=== PATIENT | male | born 1960 | race Caucasian/White ===

== ENCOUNTER 2016-06-08 09:01 | Emergency (ER) | payer BC, OTHER ==
[2016-06-08] MEDS: ASPIRIN 81 MG CHEWABLE TABLET PO ONE (09:19)
[2016-06-08] MEDS: 0.9 % SODIUM CHLORIDE 1000ML 1,000 ML IV PRN (09:19)
[2016-06-08 09:21] LABS: BASO % 0.7 % (0-6); EOS % 1.4 % (0-6); GRAN % 48.8 % (47-80); HEMATOCRIT 41.3 % (42.0-52.0); HEMOGLOBIN 14.6 gm/dl (14.0-18.0); LYMPH % 37.3 % (16-45); MEAN CELL VOLUME 103.8 fl (81-97); MEAN CORPUSCULAR HGB CONC 35.4 g/dl (32-36); MEAN PLATELET VOLUME 8.8 fl (7.4-10.4); MONO % 11.8 % (0-9); PLATELET COUNT 320 K/uL (130-400); RED BLOOD COUNT 3.98 M/uL (4.40-5.70); RED CELL DISTRIBUTION WIDTH 12.3 % (11.5-14.5); WHITE BLOOD COUNT W/O DIFF 5.5 K/uL (4.2-12.2)
[2016-06-08 09:24] LABS: MEAN CORPUSCULAR HEMOGLOBIN 36.6 pg (27-33)
[2016-06-08 09:33] LABS: ANION GAP 9.6 (7-16); BLOOD UREA NITROGEN 13 mg/dL (9-20); CARBON DIOXIDE 26.4 mmol/L (22-30); CREATININE 0.9 mg/dL (0.66-1.25); EST GLOMERULAR FILTRATION RATE > 60 ml/min; GLUCOSE,RANDOM 92 mg/dL (70-110)
--- NOTE | 2016-06-08 09:33 | Emergency Department Record ---
History of Present Illness - General Chief Complaint: Chest Pain Stated Complaint: COUGHING/CHEST DISCOMFORT Time Seen by Provider: 06/08/16 09:09 Source: Patient, RN notes reviewed Mode of Arrival: Ambulatory - History of Present Illness Initial Comments: cough and chest pain for 3 weeks and has not seen anyone medical yet. Onset/Timin -: Week(s) Onset: Awoke with symptoms Pain Location: Substernal Pain Radiation: None Severity: Mild Severity scale (1-10): 5 Quality: Heaviness Consistency: Constant Improves With: Nothing Worsens With: Nothing Treatments Prior to Arrival: None - Related Data Home Medications Medication Instructions Recorded Confirmed Last Taken Lidocaine Patch [Lidoderm] 1 ea TOP DAILY 06/08/16 06/08/16 06/08/16 Previous Rx's Medication Instructions Recorded Albuterol Sulfate [Proair Hfa] 1 - 2 puff IH .EVERY 4-6 HOURS PRN 06/08/16 #1 inhaler Doxycycline Hyclate [Doxycycline] 100 mg PO BID #20 cap 06/08/16 Prednisone [Prednisone 10Mg] 10 mg PO ASDIR #30 tab 06/08/16 Allergies Allergy/AdvReac Type Severity Reaction Status Date / Time No Known Drug Allergies Allergy Verified 06/08/16 09:08 Travel Screening - Travel/Exposure Within Last 30 Days Have you traveled within the last 30 days?: No Review of Systems Reviewed: No additional complaints except as noted below Constitutional: Reports: As per HPI. Denies: Chills, Fever, Malaise, Night sweats, Weakness, Weight change Eyes: Reports: As per HPI. Denies: Eye discharge, Eye pain, Photophobia, Vision change ENT: Reports: As per HPI. Denies: Congestion, Dental pain, Ear pain, Epistaxis , Hearing loss, Throat pain Respiratory: Reports: As per HPI, Cough. Denies: Dyspnea, Hemoptysis, Stridor, Wheezes Cardiovascular: Reports: As per HPI, Chest pain. Denies: Arrhythmia, Dyspnea on exertion, Edema, Murmurs, Orthopnea, Palpitations, Paroxysmal nocturnal dyspnea, Rheumatic Fever, Syncope Endocrine: Reports: As per HPI. Denies: Fatigue, Heat or cold intolerance, Polydipsia, Polyuria Gastrointestinal: Reports: As per HPI. Denies: Abdominal pain, Constipation, Diarrhea, Hematemesis, Hematochezia, Melena, Nausea, Vomiting Genitourinary: Reports: As per HPI. Denies: Dysuria, Frequency, Hematuria, Incontinence, Retention, Testicular pain, Testicular mass, Urgency Musculoskeletal: Reports: As per HPI. Denies: Arthralgia, Back pain, Gout, Joint swelling, Myalgia, Neck pain Skin: Reports: As per HPI. Denies: Bruising, Change in color, Change in hair/ nails, Lesions, Pruritus, Rash Neurological: Reports: As per HPI. Denies: Abnormal gait, Confusion, Headache, Numbness, Paresthesias, Seizure, Tingling, Tremors, Vertigo, Weakness Psychiatric: Reports: As per HPI. Denies: Anxiety, Auditory hallucinations, Depression, Homicidal thoughts, Suicidal thoughts, Visual hallucinations Hematological/Lymphatic: Reports: As per HPI. Denies: Anemia, Blood Clots, Easy bleeding, Easy bruising, Swollen glands Past Medical History - SOCIAL HISTORY Smoking Status: Current every day smoker Alcohol Use: None, Occassional Drug Use: None - RESPIRATORY Hx Respiratory Disorders: No - CARDIOVASCULAR Hx Cardio Disorders: No - NEURO Hx Neuro Disorders: No - GI Hx GI Disorders: No - Hx Genitourinary Disorders: No - ENDOCRINE Hx Endocrine Disorders: No - MUSCULOSKELETAL Hx Musculoskeletal Disorders: Yes Hx Arthritis: Yes Hx Back Injury: Yes Comment:: OA - PSYCH Hx Psych Problems: No - HEMATOLOGY/ONCOLOGY Hx Hematology/Oncology Disorders: No Family Medical History Any Significant Family History?: Yes Hx Diabetes: Mother *Diabetes Comment: Uncle on father's side Physical Exam - General General Appearance: Alert, Oriented x3, Cooperative, No acute distress - Head Head exam: Normal inspection - Eye Eye exam: Normal appearance, PERRL Pupils: Normal accommodation - ENT ENT exam: Normal exam, Mucous membranes moist, Normal external ear exam, Normal orophraynx, TM's normal bilaterally Ear exam: Normal external inspection. negative: External canal tenderness Nasal Exam: Normal inspection. negative: Discharge, Sinus tenderness Mouth exam: Normal external inspection, Tongue normal Teeth exam: Normal inspection. negative: Dental caries Throat exam: Normal inspection. negative: Tonsillar erythema, Tonsillar exudate - Neck Neck exam: Normal inspection, Full ROM. negative: Tenderness - Respiratory Respiratory exam: Normal lung sounds bilaterally. negative: Respiratory distress - Cardiovascular Cardiovascular Exam: Regular rate, Normal rhythm, Normal heart sounds - GI/Abdominal GI/Abdominal exam: Soft, Normal bowel sounds. negative: Tenderness - Rectal Rectal exam: Deferred - exam: Deferred - Extremities Extremities exam: Normal inspection, Full ROM, Normal capillary refill. negative: Tenderness - Back Back exam: Reports: Normal inspection, Full ROM. Denies: Muscle spasm, Rash noted, Tenderness - Neurological Neurological exam: Alert, Normal gait, Oriented X3, Reflexes normal - Psychiatric Psychiatric exam: Normal affect, Normal mood - Skin Skin exam: Dry, Intact, Normal color, Warm Course Vital Signs 06/08/16 09:04 Temperature 98.7 F Pulse Rate 84 Respiratory 20 Rate Blood Pressure 128/92 Pulse Ox 99 chest pain is reproducible with rotation of shoulders left. Medical Decision Making - Data Complexity MDM Data: Labs Ordered and/or Reviewed, X-Ray Ordered and/or Reviewed (biapical bollus disease, No acute process), EKG Ordered and/or Reviewed (No acute findings NSR) - Lab Data Result diagrams: 06/08/16 09:14 06/08/16 09:14 Lab Results 06/08/16 Range/Units 09:14 WBC 5.5 (4.2-12.2) K/uL RBC 3.98 L (4.40-5.70) M/uL Hgb 14.6 (14.0-18.0) gm/dl Hct 41.3 L (42.0-52.0) % MCV 103.8 H (81-97) fl MCH 36.6 H (27-33) pg MCHC 35.4 (32-36) g/dl RDW 12.3 (11.5-14.5) % Plt Count 320 (130-400) K/uL MPV 8.8 (7.4-10.4) fl Gran % 48.8 (47-80) % Lymphocytes % 37.3 (16-45) % Monocytes % 11.8 H (0-9) % Eosinophils % 1.4 (0-6) % Basophils % 0.7 (0-6) % Disposition Clinical Impression: COPD (chronic obstructive pulmonary disease) with acute bronchitis Disposition: Home, Self-Care Condition: (1) Good Instructions: COPD Exacerbation, [employer] (GEN), Acute Bronchitis (ED) Additional Instructions: follow up with family in 5 days Prescriptions: Doxycycline Hyclate [Doxycycline] 100 mg PO BID #20 cap Prednisone [Prednisone 10Mg] 10 mg PO ASDIR #30 tab Albuterol Sulfate [Proair Hfa] 1 - 2 puff IH .EVERY 4-6 HOURS PRN #1 inhaler PRN Reason: Difficulty In Breathing Forms: Patient Portal Access Time of Disposition: 11:48
[2016-06-08] MEDS: IPRATROPIUM/ALBUTEROL (0.5MG/3MG) NEB INH ONE (09:36)
[2016-06-08 09:45] LABS: CKMB 1.1 ug/L (0-6)
[2016-06-08 09:47] LABS: TROPONIN I < 0.012 ng/mL (0.00-0.034)
[2016-06-08] MEDS: METHYLPREDNISOLONE PF 125MG/VIAL IVP ONE (09:49)
== END 2016-06-08 12:09 | disposition home or self-care (01) ==
LOC: ER 09:01
DX: J44.9 Chronic obstructive pulmonary disease, unspecified (principal); J20.9 Acute bronchitis, unspecified; R07.2 Precordial pain; F17.210 Nicotine dependence, cigarettes, uncomplicated
CPT/HCPCS: 71020; 80048; 82553; 84484; 85025; 85379; 85730; 93005; 93010; 94640; 96374; 99284; J2930